=== PATIENT | female | born 1945 | race Caucasian/White ===

== ENCOUNTER 2017-05-30 13:48 | Outpatient (CLI) | payer MEDICARE, OTHER ==
[2016-02-06 05:09] VITALS: BP 146/78
== END 2017-05-30 13:51 ==
LOC: CARD 13:48
PROVIDERS: ATTEND Internal Medicine Cardiovascular Disease
DX: I25.10 Atherosclerotic heart disease of native coronary artery without angina pectoris (principal); E78.5 Hyperlipidemia, unspecified; I10 Essential (primary) hypertension; E11.9 Type 2 diabetes mellitus without complications; E66.9 Obesity, unspecified
CPT/HCPCS: G0463

== ENCOUNTER 2017-08-08 13:17 | Outpatient (CLI) | payer MEDICARE, OTHER ==
[2016-02-06 05:09] VITALS: BP 146/78
== END 2017-08-08 13:25 ==
LOC: CARD 13:17
PROVIDERS: ATTEND Internal Medicine Cardiovascular Disease
DX: I25.10 Atherosclerotic heart disease of native coronary artery without angina pectoris (principal); E78.5 Hyperlipidemia, unspecified; I10 Essential (primary) hypertension; E11.9 Type 2 diabetes mellitus without complications; E66.9 Obesity, unspecified
CPT/HCPCS: G0463